=== PATIENT | male | born 1960 | race Hispanic/Latino ===

== ENCOUNTER 2016-08-24 13:00 | Outpatient (CLI) | payer MEDICAID ==
[2016-08-24] MEDS ORDERED: XYLOCAINE TOPICAL 4% TP ONE ×2 (13:46→14:00)
== END 2016-08-24 13:01 | disposition home or self-care (01) ==
LOC: WOUND 13:00
PROVIDERS: ATTEND Podiatrist
DX: T81.89XD Other complications of procedures, not elsewhere classified, subsequent encounter (principal); L97.822 Non-pressure chronic ulcer of other part of left lower leg with fat layer exposed; K21.9 Gastro-esophageal reflux disease without esophagitis; G62.9 Polyneuropathy, unspecified; F32.9 Major depressive disorder, single episode, unspecified; F41.9 Anxiety disorder, unspecified; F17.200 Nicotine dependence, unspecified, uncomplicated; Y83.8 Other surgical procedures as the cause of abnormal reaction of the patient, or of later complication, without mention of misadventure at the time of the procedure
CPT/HCPCS: 11042; G0463

== ENCOUNTER 2016-08-31 11:02 | Emergency (ER) | payer MEDICAID ==
[2016-08-31 12:19] LABS: Basophils % (Auto) 0.4 % (0.0-1.8); Eosinophils % (Auto) 4.1 % (0.0-4.3); Hematocrit 44.4 % (35.5-45.6); Hemoglobin 14.5 gm/dl (11.8-15.2); Mean Corpuscular HGB Conc 33 % (32-34); Mean Corpuscular Hemoglobin 30 pg (28-32); Mean Corpuscular Volume 93 fl (84-94); Platelet Count 166 K/mm3 (140-440); Red Cell Distribution Width 15.9 % (13.2-15.2); White Blood Count 9.4 K/mm3 (4.5-11.0)
[2016-08-31] MEDS ORDERED: NACL 0.9% 1000 ML 1,000 ML IV ONE (12:25)
--- NOTE | 2016-08-31 12:26 | Emergency Department Report ---
ED Alcohol HPI - General Chief Complaint: Alcohol Stated Complaint: POSS OVERDOSE/INTOXICATED Time Seen by Provider: 08/31/16 12:22 Source: patient Mode of arrival: Wheelchair Limitations: No Limitations - History of Present Illness MD Complaint: alcohol intoxication, alcohol withdrawal, desires rehab Last Drink: just [employer] Chronic Alcohol Use: Yes Previous Visits for Alcohol Intoxication?: Yes Recent Trauma: Yes Associated Symptoms: nausea, vomiting, tremors. denies: syncope, seizure, abdominal pain, hematemesis, depression - Related Data Previous Rx's Medication Instructions Recorded Last Taken Type Levothyroxine [Synthroid] 88 mcg PO DAILY@0600 #30 tablet 08/17/16 Unknown Rx Multivitamin Tab [Multiple Vitamin 1 each PO QDAY #30 tablet 08/17/16 Unknown Rx TAB (Theragran)] Pantoprazole [Protonix TAB] 40 mg PO BID #30 tablet 08/17/16 Unknown Rx Rifaximin [Xifaxan] 550 mg PO BID #30 tablet 08/17/16 Unknown Rx Spironolactone [Aldactone] 50 mg PO QDAY #30 tablet 08/17/16 Unknown Rx chlordiazePOXIDE [Librium] 10 mg PO DAILY #10 capsule 08/17/16 Unknown Rx traMADol [Ultram] 50 mg PO Q6HR PRN #20 tablet 08/17/16 Unknown Rx Allergies Allergy/AdvReac Type Severity Reaction Status Date / Time No Known Allergies Allergy Verified 08/31/16 11:20 ED Review of Systems ROS: Stated complaint: POSS OVERDOSE/INTOXICATED Other details as noted in HPI Comment: All other systems reviewed and negative ED Past Medical Hx - Past Medical History Hx Hypertension: No Hx Heart Attack/AMI: No Hx Congestive Heart Failure: No Hx Diabetes: No Hx Deep Vein Thrombosis: No Hx Pulmonary Embolism: No Hx Liver Disease: Yes (CIRRHOSIS , HEPATITIS C) Hx Renal Disease: No Hx Arthritis: No Hx Seizures: Yes Hx Kidney Stones: No Hx Asthma: No Hx COPD: No Hx Tuberculosis: No Hx Dementia: No Additional medical history: subdural hematoma, liver disease, neuropathy, left ankle fx,. ALCOHOL ABUSE. HEPATIC ENCEPHALOPATHY. GASTRIC ULCERS. PANCREATITIS - Surgical History Hx Coronary Stent: No Hx Pacemaker: No Hx Internal Defibrillator: No Additional Surgical History: brain surgery, left ankle fx, - Social History Smoking Status: Current Every Day Smoker Substance Use Type: Alcohol, Prescribed - Medications Home Medications: Home Medications Medication Instructions Recorded Confirmed Last Taken Type Levothyroxine [Synthroid] 88 mcg PO DAILY@0600 #30 tablet 08/17/16 Unknown Rx Multivitamin Tab [Multiple Vitamin 1 each PO QDAY #30 tablet 08/17/16 Unknown Rx TAB (Theragran)] Pantoprazole [Protonix TAB] 40 mg PO BID #30 tablet 08/17/16 Unknown Rx Rifaximin [Xifaxan] 550 mg PO BID #30 tablet 08/17/16 Unknown Rx Spironolactone [Aldactone] 50 mg PO QDAY #30 tablet 08/17/16 Unknown Rx chlordiazePOXIDE [Librium] 10 mg PO DAILY #10 capsule 08/17/16 Unknown Rx traMADol [Ultram] 50 mg PO Q6HR PRN #20 tablet 08/17/16 Unknown Rx ED Physical Exam - General Limitations: No Limitations General appearance: appears intoxicated, anxious, obtunded - Head Head exam: Present: atraumatic - Eye Eye exam: Present: normal appearance, PERRL - ENT ENT exam: Present: normal exam, normal orophraynx - Neck Neck exam: Present: normal inspection - Respiratory Respiratory exam: Present: normal lung sounds bilaterally - Cardiovascular Cardiovascular Exam: Present: regular rate - GI/Abdominal GI/Abdominal exam: Present: soft - exam: Present: normal inspection - Extremities Exam Extremities exam: Present: normal inspection, full ROM - Back Exam Back exam: Present: normal inspection, full ROM ED Course Vital Signs 08/31/16 08/31/16 11:10 15:27 Temperature 97.9 F Pulse Rate 89 Respiratory 17 16 Rate Blood Pressure 126/85 O2 Sat by Pulse 100 100 Oximetry ED Medical Decision Making - Lab Data Result diagrams: 08/31/16 11:59 08/31/16 11:59 - Medical Decision Making patient wants to leave the hospital , cause we are denying him opioids , patient signed AMA , family picking him up. Critical care attestation.: If time is entered above; I have spent that time in minutes in the direct care of this critically ill patient, excluding procedure time. ED Disposition Clinical Impression: Nausea vomiting and diarrhea, Alcohol abuse Disposition: LEFT AGAINST MED ADVICE Is pt being admited?: No Does the pt Need Aspirin: No Condition: Good Referrals: PRIMARY CARE, [Primary Care Provider] - 3-5 Days Forms: AMA Form Time of Disposition: 18:18
[2016-08-31 12:28] LABS: Anion Gap 20 mmol/L; BUN/Creatinine Ratio 8.18; Blood Urea Nitrogen 9 mg/dL (9-20); Calcium 8.6 mg/dL (8.4-10.2); Carbon Dioxide 21 mmol/L (22-30); Chloride 105.3 mmol/L (98-107); Glucose 98 mg/dL (75-100); Potassium 3.9 mmol/L (3.6-5.0); Sodium 142 mmol/L (137-145)
--- NOTE | 2016-08-31 12:44 | XRay Report ---
CHEST ONE VIEW INDICATION: Altered mental status. COMPARISON: None similar. FINDINGS: Portable, single, frontal chest radiograph demonstrates normal cardiomediastinal silhouette. Clear lungs. Unremarkable bones. CONCLUSION: No acute disease in the chest. Thank you for the opportunity to participate in this patient's care.
[2016-08-31] MEDS ORDERED: ATIVAN ONE (14:04)
[2016-08-31] MEDS ORDERED: ATIVAN IV ONE ×2 (14:49→17:42)
--- NOTE | 2016-08-31 15:59 | Cat Scan Report ---
CT HEAD WITHOUT CONTRAST INDICATION: Altered mental status. COMPARISON: None similar. FINDINGS: Noncontrast head CT demonstrates motion/streak artifact from right frontotemporal craniotomy closure devices, limiting exam. Symmetric, slightly enlarged ventricles and sulci, though overall age-appropriate. No definite acute infarct, hemorrhage, mass effect or midline shift. No abnormal extra-axial fluid collections. Normal posterior fossa with preserved basilar cisterns. Moderate to severe opacification of imaged right maxillary sinus. Clear remainder imaged paranasal sinuses and mastoid air cells. Partially imaged rightward nasal septal deviation. No significantly depressed skull fractures. Normal scalp. Few radiopaque dental material. Right external auditory canal debris may be directly visualized. CONCLUSION: Right maxillary sinusitis without acute intracranial CT abnormality and few other incidental findings, as above. Please correlate. Thank you for the opportunity to participate in this patient's care.
[2016-08-31 17:13] LABS: Urine Drugs of Abuse Note Disclamer
[2016-08-31] MEDS ORDERED: TORADOL IV ONE (17:42)
[2016-08-31 17:50] LABS: Bilirubin,Urine NEG (Negative); Blood,Urine NEG (Negative); Ketones,Urine NEG (Negative); Leukocyte Esterase,Urine NEG (Negative); Mucus,Urine FEW /HPF; Nitrite,Urine NEG (Negative); Protein,Urine <15 mg/dL mg/dL (Negative); Urobilinogen,Urine < 2.0 mg/dL (<2.0)
[2016-08-31 19:25] VITALS: BP 111/91
== END 2016-08-31 18:45 | disposition left against medical advice (07) ==
LOC: ED 11:02
DX: F10.129 Alcohol abuse with intoxication, unspecified (principal); R11.2 Nausea with vomiting, unspecified; R19.7 Diarrhea, unspecified; R25.1 Tremor, unspecified; G62.9 Polyneuropathy, unspecified; K85.90 Acute pancreatitis without necrosis or infection, unspecified; F17.200 Nicotine dependence, unspecified, uncomplicated
CPT/HCPCS: 36415; 70450; 71010; 80048; 80307; 81001; 82140; 85025; 96361; 96374; 96375; 99285; G0480; J1885; J2060; J7030; 80320